=== PATIENT | male | born 1950 | race Hispanic/Latino ===

== ENCOUNTER 2018-02-18 16:21 | Emergency (ER) | payer OTHER ==
[2018-02-18 16:38] VITALS: RESP 16; O2SAT 98
[2018-02-18] MEDS ORDERED: Sodium Chloride 0.9% 1,000 ML IV STA (18:21)
--- NOTE | 2018-02-18 18:40 | ED PDOC ---
HPI: Male Pain Time Seen by Provider: 02/18/18 17:20 Chief Complaint (Nursing): Male Genitourinary Chief Complaint (Provider): Male Genitourinary History Per: Patient History/Exam Limitations: no limitations Current Symptoms Are (Timing): Still Present Additional Complaint(s): Jc Fair is a 67 year old male a past medical history of prostate surgery, who presents to the emergency department complaining of having intermittent urinary retention since 1230 today. He further states that he feels dehydrated, as he states he sometimes get dehydrated periodically. denies vomiting or diarrh ea. PMD: [facility] Past Medical History Reviewed: Historical Data, Nursing Documentation, Vital Signs Vital Signs: Last Vital Signs Temp 98.7 F 02/18/18 16:35 Pulse 119 H 02/18/18 16:35 Resp 16 02/18/18 16:35 BP 169/92 H 02/18/18 16:35 Pulse Ox 98 02/18/18 16:35 - Medical History PMH: Benign Prostatic Hyperplasia Denies: Chronic Kidney Disease - Surgical History Other surgeries: Green laser prostate surgery - Family History Family History: States: Unknown Family Hx - Social History Current smoker - smoking cessation education provided: No Alcohol: None Drugs: Denies - Allergies Allergies/Adverse Reactions: Allergies Allergy/AdvReac Type Severity Reaction Status Date / Time No Known Allergies Allergy Verified 02/18/18 16:35 Review of Systems ROS Statement: Except As Marked, All Systems Reviewed And Found Negative Genitourinary Male: Positive for: Incontinence. Negative for: Frequency Physical Exam - Reviewed Nursing Documentation Reviewed: Yes Vital Signs Reviewed: Yes - Physical Exam Appears: Positive for: Non-toxic, No Acute Distress Head Exam: Positive for: ATRAUMATIC, NORMOCEPHALIC Skin: Positive for: Normal Color, Warm, Dry Eye Exam: Positive for: Normal appearance, EOMI, PERRL ENT: Positive for: Normal ENT Inspection Neck: Positive for: Normal, Painless ROM, Supple Cardiovascular/Chest: Positive for: Regular Rate, Rhythm. Negative for: Murmur Respiratory: Positive for: Normal Breath Sounds. Negative for: Respiratory Distress Gastrointestinal/Abdominal: Positive for: Normal Exam, Soft. Negative for: Tenderness Back: Positive for: Normal Inspection. Negative for: L CVA Tenderness, R CVA Tenderness, Vertebral Tenderness Extremity: Positive for: Normal ROM. Negative for: Pedal Edema, Deformity Neurologic/Psych: Positive for: Alert, Oriented (x3) - Laboratory Results Result Diagrams: 02/18/18 19:10 02/18/18 19:10 - ECG O2 Sat by Pulse Oximetry: 98 (RA) Pulse Ox Interpretation: Normal Medical Decision Making Medical Decision Making: Time: 1820 Plan: urinary retention, rule out obstruction, UTI, electrolyte abnormality --CMP --CBC with differential --Sodium chloride 1,000 ml --Urine culture --Urinalysis --Bravo --Bladder scan PRN 1900 patient care is endorsed to Dr. Kumar pending work up. Scribe Attestation: Documented by Lisandro Eaton, acting as a scribe for Carolien Cortez MD. Provider Scribe Attestation: All medical record entries made by the Scribe were at my direction and personally dictated by me. I have reviewed the chart and agree that the record accurately reflects my personal performance of the history, physical exam, medical decision making, and the department course for this patient. I have also personally directed, reviewed, and agree with the discharge instructions and disposition. Disposition - Clinical Impression Clinical Impression: Urinary retention - Patient ED Disposition Is Patient to be Admitted: Transfer of Care - Disposition Disposition: Transfer of Care Disposition Time: 19:00 Condition: STABLE Instructions: Bravo Catheter, Male, Urinary Retention (DC) Forms: [employer] (Kenyan) Patient Signed Over To: Rene Kumar
--- NOTE | 2018-02-18 19:20 | ED PDOC ---
- Laboratory Results Result Diagrams: 02/18/18 19:10 02/18/18 19:10 - ECG O2 Sat by Pulse Oximetry: 98 (RA) Pulse Ox Interpretation: Normal Medical Decision Making Medical Decision Makin Patient has been endorsed to me by Dr. Cortez pending work up. 2220 Labs reviewed with no clinical abnormalities. Patient reports to have impr ovement in symptoms. Patient states he will follow up with personal Urologist. Patient was discharged with leg bag and return precautions were provided. Patient diagnosis was urinary retention. -- Scribe Attestation: Documented by Lisandro Eaton, acting as a scribe for Rene Judd MD. Provider Scribe Attestation: All medical record entries made by the Scribe were at my direction and personally dictated by me. I have reviewed the chart and agree that the record accurately reflects my personal performance of the history, physical exam, medical decision making, and the department course for this patient. I have also personally directed, reviewed, and agree with the discharge instructions and disposition. Disposition - Clinical Impression Clinical Impression: Urinary retention - POA Present On Arrival: None - Disposition Disposition: Routine/Home Disposition Time: 22:20 Condition: STABLE Instructions: Bravo Catheter, Male, Urinary Retention (DC) Forms: [employer] (Belarusian)
[2018-02-18 19:37] LABS: ALB/GLOB RATIO 1.4 (1.0-2.1); ALBUMIN 4.4 g/dL (3.5-5.0); ALT/SGPT 34 U/L (21-72); AST/SGOT 30 U/L (17-59); BLOOD UREA NITROGEN 10 mg/dl (9-20); GFR NON-AFRICAN AMERICAN > 60
[2018-02-18 19:38] LABS: BASO # 0.1 K/uL (0.0-0.2); BASO % 0.5 % (0.0-2.0); HEMOGLOBIN 13.7 g/dL (12.0-18.0); LYMPH # 0.4 K/uL (1.0-4.3); LYMPH % 3.6 % (20.0-40.0); MEAN CELL VOLUME 88.9 fl (80.0-94.0); MEAN CORPUSCULAR HEMOGLOBIN 28.9 pg (27.0-31.0); MEAN CORPUSCULAR HGB CONC 32.5 g/dL (33.0-37.0); MEAN PLATELET VOLUME 8.6 fl (7.2-11.7); MONO # 0.4 K/uL (0.0-0.8); MONO % 3.9 % (0.0-10.0); PLATELET COUNT 190 K/uL (130-400); RBC 4.74 Mil/uL (4.40-5.90); RED CELL DISTRIBUTION WIDTH 12.9 % (11.5-14.5); WHITE BLOOD COUNT 10.9 K/uL (4.8-10.8)
[2018-02-18 19:41] LABS: URINE BILIRUBIN NEGATIVE (NEGATIVE); URINE BLOOD MODERATE (NEGATIVE); URINE CLARITY CLEAR (Clear); URINE COLOR YELLOW (YELLOW); URINE GLUCOSE (UA) NEG (NEGATIVE); URINE LEUKOCYTE ESTERASE NEG Leu/uL (Negative); URINE PROTEIN NEGATIVE (NEGATIVE); URINE UROBILINOGEN 0.2-1.0 mg/dL (0.2-1.0)
[2018-02-18 20:20] LABS: SQUAMOUS EPITHIAL 3 /hpf (0-5); URINE BACTERIA OCC (<OCC)
[2018-02-18 22:09] LABS: BANDS 2 % (0-2); LYMPHOCYTE 4 % (20-50); MONOCYTE 5 % (0-10); NEUTROPHIL 89 % (42-75); PLATELET ESTIMATE NORMAL (NORMAL); TOTAL CELLS COUNTED 100
[2018-02-18 22:26] VITALS: BP 155/93; PULSE 96; TEMP 99.1
--- NOTE | 2018-02-19 12:14 | US ---
Date of service: 02/18/2018 PROCEDURE: Ultrasound of the Bladder HISTORY: hematuria COMPARISON: None available. TECHNIQUE: Sonographic evaluation of the bladder was performed. FINDINGS: Unremarkable without wall thickening or intraluminal debris. No calculus or gross mass lesion. No free fluid in pelvis. Prevoid Volume: 369.4 cc. Post void residual: Bravo catheter was noted in place. Failure to documented ureteral jets. IMPRESSION: Documentation of Bravo catheter within the urinary bladder. No focal or diffuse urinary bladder wall abnormalities.
== END 2018-02-18 22:30 | disposition home or self-care (01) ==
LOC: H.ER 16:21
DX: R33.8 Other retention of urine (principal); N40.1 Benign prostatic hyperplasia with lower urinary tract symptoms
CPT/HCPCS: 51701; 76856; 80053; 81003; 85025; 87086; 99284; J7030

== ENCOUNTER 2018-02-20 12:37 | Emergency (ER) | payer OTHER ==
[2018-02-20 12:48] VITALS: BMI 22.6
[2018-02-20 12:50] VITALS: PULSE 109; RESP 17; TEMP 98.5; O2SAT 99
[2018-02-20 14:11] VITALS: BP 174/99
--- NOTE | 2018-02-20 14:42 | ED PDOC ---
HPI: Male Pain Time Seen by Provider: 02/20/18 13:26 Chief Complaint (Nursing): Male Genitourinary History Per: Patient Additional Complaint(s): Pt. states he had huynh placed 2 days ago here in [facility] for urinary retention. Pt. states he would like to get it removed as he is going to a wedding tomorrow. Also states he has not taken his Metoprolol in several days as he depleted his supply. Denies fever, back pain, headache, chest pain, SOB, visual changes, abd pain, urinary retention. Past Medical History Reviewed: Historical Data, Nursing Documentation, Vital Signs Vital Signs: Last Vital Signs Temp 98.5 F 02/20/18 12:49 Pulse 109 H 02/20/18 12:49 Resp 17 02/20/18 12:49 BP 174/99 H 02/20/18 14:11 Pulse Ox 99 02/20/18 12:49 - Medical History PMH: Benign Prostatic Hyperplasia, HTN Denies: Chronic Kidney Disease - Family History Family History: States: No Known Family Hx - Home Medications Home Medications: Ambulatory Orders Medication Instructions Recorded Alprazolam [Xanax] 0.5 mg PO Q6 PRN 02/20/18 Methscopolamine Tatum 2.5 mg PO TID PRN 02/20/18 Metoprolol Succinate XL [Toprol XL] 50 mg PO DAILY 02/20/18 Multivitamin [Multi-Vitamin Daily] 1 tab PO DAILY 02/20/18 RX: Metoprolol Succinate 50 mg PO DAILY #7 tab.er.24h 02/20/18 Sulfamethoxazole/Trimethoprim 1 tab PO BID #14 tab 02/20/18 [Bactrim DS 800 mg-160 mg] clonazePAM [Klonopin] 1 mg PO Q12 PRN 02/20/18 - Allergies Allergies/Adverse Reactions: Allergies Allergy/AdvReac Type Severity Reaction Status Date / Time No Known Allergies Allergy Verified 02/20/18 12:47 Review of Systems ROS Statement: Except As Marked, All Systems Reviewed And Found Negative Physical Exam - Physical Exam Appears: Positive for: Well, Non-toxic, No Acute Distress Skin: Positive for: Normal Color, Warm. Negative for: Rash Eye Exam: Positive for: EOMI, Normal appearance, PERRL Cardiovascular/Chest: Positive for: Regular Rate, Rhythm Respiratory: Positive for: Normal Breath Sounds Gastrointestinal/Abdominal: Positive for: Normal Exam, Bowel Sounds, Soft. Negative for: Tenderness, Organomegaly, Mass Male Genital Exam: Positive for: normal genitalia, other (huynh catheter in place). Negative for: bleeding, erythema, lesions, urethral discharge Back: Negative for: L CVA Tenderness, R CVA Tenderness Neurologic/Psych: Positive for: Alert, Oriented (x3) - Laboratory Results Urine dip results: Positive for: Leukocyte Esterase (trace). Negative for: Blood, Nitrate, Ketones, Glucose, Bilirubin, Protein - ECG O2 Sat by Pulse Oximetry: 99 - Progress ED Course And Treament: Pt. states he has a scheduled appointment with his urologist and his PMD on Friday. Advised to return to ED immediately if retention returns or any other concerns arise. Urine C&S sent. Metoprolol dosing confirmed by [place] who spoke with pt.'s pharmacy. Disposition - Clinical Impression Clinical Impression: Status post insertion of Huynh catheter, UTI (urinary tract infection), Medication refill - Patient ED Disposition Is Patient to be Admitted: No - Disposition Referrals: [facility] [Outside] Disposition: Routine/Home Disposition Time: 14:39 Condition: STABLE Additional Instructions: FOLLOW UP WITH YOUR UROLOGIST AND PMD ON FRIDAY FOR FURTHER EVALUATION RETURN TO ED IMMEDIATELY IF SYMPTOMS WORSEN [place], thank you for letting us take care of you today. Your provider was Neva Cobb MD and you were treated for MALE GENITOURINARY. The emergency medical care you received today was directed at your acute symptoms. If you were prescribed any medication, please fill it and take as directed. It may take several days for your symptoms to resolve. Return to the Emergency Department if your symptoms worsen, do not improve, or if you have any other problems. Please contact your doctor or call one of the physicians/clinics you have been referred to that are listed on the Patient Visit Information form that is included in your discharge packet. Bring any paperwork you were given at discharge with you along with any medications you are taking to your follow up visit. Our treatment cannot replace ongoing medical care by a primary care provider outside of the emergency department. Thank you for allowing the [facility] team to be part of your care today. If you had an X-Ray or CT scan: A Radiologist will review the ED reading if any change in treatment is needed we will contact you. If you had a blood, urine, or wound culture: It will take several days for the results, if any change in treatment is needed we will contact you. If you had an STI test: It will take 48 hours for the results. Please call after 1 week if you have not heard back. Prescriptions: RX: Metoprolol Succinate 50 mg PO DAILY #7 tab.er.24h Sulfamethoxazole/Trimethoprim [Bactrim DS 800 mg-160 mg] 1 tab PO BID #14 tab Instructions: High Blood Pressure in Adults, Urinary Tract Infection, Adult (DC) Forms: [employer] ([place] Islander) Print Language: NIGERIEN
== END 2018-02-20 14:45 | disposition home or self-care (01) ==
LOC: H.ER 12:37
DX: N39.0 Urinary tract infection, site not specified (principal); Z76.0 Encounter for issue of repeat prescription; Z46.6 Encounter for fitting and adjustment of urinary device; Z79.899 Other long term (current) drug therapy; I10 Essential (primary) hypertension; N40.0 Benign prostatic hyperplasia without lower urinary tract symptoms